=== PATIENT | female | born 1945 | race Hispanic/Latino ===

== ENCOUNTER → 2024-07-08 | Outpatient (CLI) | payer OTHER ==
--- NOTE | 2024-07-09 15:04 | HMCSR ---
APPROVED REPORT Laterality: Bilateral Indications r09.89 Doppler Spectral Velocity Analysis PSV / EDVPSV / EDV ECA (R) 278 / cm/sECA (L) 147 / cm/s dICA (R) 70 / 15 cm/sdICA (L) 132 / 20 cm/s Rupal (R) 110 / 13 cm/smICA (L) 134 / 28 cm/s pICA (R) 130 / 25 cm/spICA (L) 162 / 33 cm/s dCCA (R) 67 / 14 cm/sdCCA (L) 70 / 15 cm/s mCCA (R) 74 / 15 cm/smCCA (L) 84 / 14 cm/s pCCA (R) 75 / 11 cm/spCCA (L) 83 / 15 cm/s Vert (R) 65 / cm/sVert (L) 46 / cm/s Subl. (R) 98 / cm/sSubl. (L) 311 / cm/s ICA/CCA 1.73ICA/CCA 1.93 Technologist Impression Mildl plaque noted in the bilateral carotids bulbs. MEGAN appears patent, without hemodynamic significance. Bilateral vertebral arteries appear antegrade. 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 Conclusion Mildl plaque noted in the bilateral carotids bulbs. MEGAN appears patent, without hemodynamic significance. Bilateral vertebral arteries appear antegrade. 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 Conclusion Mildl plaque noted in the bilateral carotids bulbs. MEGAN appears patent, without hemodynamic significance. Bilateral vertebral arteries appear antegrade. 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
== END | disposition home or self-care (01) ==
LOC: SHCH 08:57
PROVIDERS: ATTEND Internal Medicine Cardiovascular Disease
DX: I65.23 Occlusion and stenosis of bilateral carotid arteries (principal); R09.89 Other specified symptoms and signs involving the circulatory and respiratory systems
CPT/HCPCS: 93880

== ENCOUNTER → 2024-07-15 | Outpatient (CLI) | payer OTHER ==
[2024-07-15 16:54] LABS: CREATININE 0.6 mg/dL (0.5-1.0); POTASSIUM 3.8 mmol/L (3.5-5.1)
== END | disposition home or self-care (01) ==
LOC: LAB 11:34
PROVIDERS: ATTEND Nurse Practitioner Acute Care
DX: I65.22 Occlusion and stenosis of left carotid artery (principal)
CPT/HCPCS: 36415; 80048